=== PATIENT | female | born 1995 | race Caucasian/White ===

== ENCOUNTER 2016-05-04 19:27 | Emergency (ER) | payer OTHER ==
[2016-05-04 19:42] VITALS: BP 117/71; PULSE 81; TEMP 97.8; BMI 19.7
--- NOTE | 2016-05-04 20:46 | PDOC ---
History of Present Illness - General Chief Complaint: Injury Stated Complaint: INJURY TO RIGHT FOOT Time Seen by Provider: 05/04/16 19:52 History Source: Patient Exam Limitations: Language Barrier - History of Present Illness Initial Comments: 05/04/16 20:41 CC pain right great toe post heavy cutting board fell on same Occurred: reports: just prior to arrival Severity: reports: mild Pain Location: reports: lower extremity Method of Injury: Yes: direct blow Past History - Past Medical History Allergies/Adverse Reactions: Allergies Allergy/AdvReac Type Severity Reaction Status Date / Time morphine AdvReac Verified 05/04/16 19:38 Home Medications: Ambulatory Orders NK [No Known Home Medication] 05/04/16 - Psycho/Social/Smoking Cessation Hx Suicidal Ideation: No Smoking History: Never smoked Information on smoking cessation initiated: No Hx Alcohol Use: No Drug/Substance Use Hx: No Review of Systems - Review of Systems Constitutional: No: Chills, Fever, Malaise HEENTM: No: Symptoms Reported Respiratory: No: Symptoms reported, Cough Musculoskeletal: Yes: Joint Pain, Joint Swelling Integumentary: No: Symptoms Reported, Bruising Neurological: No: Numbness, Paresthesia, Tingling *Physical Exam - Vital Signs Last Vital Signs Temp Pulse Resp BP Pulse Ox 97.8 F 81 14 117/71 100 05/04/16 19:39 05/04/16 19:39 05/04/16 19:39 05/04/16 19:39 05/04/16 19:39 - Physical Exam General Appearance: Yes: Appropriately Dressed. No: Apparent Distress HEENT: negative: TMs Normal, Pharynx Normal Neck: positive: Supple. negative: Rigid Respiratory/Chest: positive: Lungs Clear Extremity: positive: Other (tender to prox phalange great toe with mild STS; no skin breaks) ED Treatment Course - ADDITIONAL ORDERS Additional order review: Laboratory Results 05/04/16 20:00 Urine HCG, Qual Negative - RADIOLOGY Radiology Studies Ordered: Category Date Time Status TOE(S) RIGHT [RAD] Stat Radiology 05/04/16 20:17 Taken Medical Decision Making - Medical Decision Making 05/04/16 20:44 xray= no fx noted; will suggest hard soled shoe and rest *DC/Admit/Observation/Transfer Diagnosis at time of Disposition: Contusion of toe of right foot Qualifiers: Encounter type: initial encounter Toe: great toe Damage to nail status: without damage Qualified Code(s): S90.111A - Contusion of right great toe without damage to nail, initial encounter - Discharge Dispostion Disposition: HOME Condition at time of disposition: Stable Admit: No - Referrals Referrals: Albert Peace MD [Primary Care Provider] - Britney Morrison MD [Staff Physician] - - Patient Instructions Additional Instructions: please wear hard soled shoe; franck splint as needed - Post Discharge Activity Work/School Note: Back to Work
== END 2016-05-04 20:50 | disposition home or self-care (01) ==
LOC: JERFT 19:27
DX: S90.111A Contusion of right great toe without damage to nail, initial encounter (principal); W20.8XXA Other cause of strike by thrown, projected or falling object, initial encounter; Y93.89 Activity, other specified; Y92.89 Other specified places as the place of occurrence of the external cause; Y99.8 Other external cause status
CPT/HCPCS: 73660-TC; 84703; 99281-25

== ENCOUNTER 2018-03-28 22:00 | Inpatient (IN) | payer OTHER ==
[2018-03-28] MEDS ORDERED: DEXTROSE 5%-LACTATED RINGERS 500 ML IV ONE (23:20)
[2018-03-29] MEDS: DEXTROSE 5%-LACTATED RINGERS 1,000 ML IV SCH ×2 (00:35→03:00)
[2018-03-29] MEDS ORDERED: BUTORPHANOL TARTRATE 1 MG/ML VIAL ONE ×2 (02:04)
[2018-03-29] MEDS ORDERED: PROMETHAZINE HCL 25 MG/1 ML VIAL ONE (02:04)
[2018-03-29 02:37] VITALS: BMI 25.9
[2018-03-29] MEDS ORDERED: PROMETHAZINE HCL 25 MG/1 ML VIAL IVPB ONE (03:30)
[2018-03-29] MEDS ORDERED: BUTORPHANOL TARTRATE 1 MG/ML VIAL IVPB ONE (03:30)
[2018-03-29 03:57] LABS: ALBUMIN 2.4 g/dl (3.4-5.0); ALK PHOS 157 U/L (45-117); ANION GAP 9 MMOL/L (8-16); BILIRUBIN,TOTAL 0.2 mg/dL (0.2-1); BLOOD UREA NITROGEN 8 mg/dL (7-18); CALCIUM 7.9 mg/dL (8.5-10.1); CHLORIDE 106 mmol/L (98-107); CO2 23 mmol/L (21-32); CREATININE 0.6 mg/dL (0.55-1.3); GLUCOSE,RANDOM 86 mg/dL (74-106); POTASSIUM 3.8 mmol/L (3.5-5.1); SGOT/AST 18 U/L (15-37); SGPT/ALT 15 U/L (13-61); SODIUM 138 mmol/L (136-145); TOT PROT 5.9 g/dl (6.4-8.2)
[2018-03-29 05:39] LABS: BASO % 0.4 % (0-2.0); EOS % 0.1 % (0-4.5); HEMATOCRIT 29.9 % (32.4-45.2); HEMOGLOBIN 9.3 GM/dL (10.7-15.3); LYMPH % 10.6 % (8-40); MCHC 31.1 g/dl (32.0-36.0); MEAN PLT VOLUME 7.8 fl (7.5-11.1); MONO % 7.6 % (3.8-10.2); NEUT % 81.3 % (42.8-82.8); PLATELET COUNT 197 K/MM3 (134-434); RBC 3.32 M/mm3 (3.60-5.2); RDW 18.5 % (11.6-15.6); WHITE BLOOD COUNT 11.2 K/mm3 (4.0-10.0)
[2018-03-29 05:55] LABS: INR 1.01 (0.83-1.09); PROTHROMBIN TIME (PATIENT) 11.9 SEC (9.7-13.0)
[2018-03-29 05:58] LABS: ACTIVATED PTT 27.2 SECONDS (25.2-36.5)
[2018-03-29] MEDS ORDERED: AMPICILLIN - 2 GM in SODIUM CHLORIDE 100 ML IVPB ONE (06:10)
[2018-03-29] MEDS ORDERED: AMPICILLIN SODIUM 2 GM VIAL ONE (06:13)
[2018-03-29] MEDS ORDERED: FENTANYL/BUPIVACAINE/NS/PF - PCEA - 50 ML DISP.SYRIN EP ONE ×2 (07:38→12:20)
[2018-03-29] MEDS ORDERED: BUPIVACAINE HCL/PF 0.25% (2.5MG/ML) 10 ML VIAL ONE (07:40)
[2018-03-29] MEDS ORDERED: NALOXONE HCL 0.4 MG/ML VIAL IVPUSH PRN (08:05)
[2018-03-29] MEDS ORDERED: FENTANYL/BUPIVACAINE/NS/PF - PCEA - 50 ML DISP.SYRIN EP SCH (08:15)
--- NOTE | 2018-03-29 09:13 | HP ---
Past Medical History - Admission History of Present Illness: 22 y/o with SIUP at 38.2 weeks gestation admitted overnight in labor. Pt admitted with contractions, is now 6cm dilated and recieved epidural this a.m. Pt is comfortable. overall uncomplicated. History Source: Patient, Medical Record Limitations to Obtaining History: No Limitations - Past Medical History Cardiovascular: Yes: Other (heart "murmur." Maternal echo this completed and normal.). No: HTN Pulmonary: No: COPD Gastrointestinal: No: GERD Renal/: No: UTI Reproductive: No: Endometriosis, Fibroids, PID ...: 1 ...Para: 0 ...Term: 0 ...: 0 ...Spon : 0 ...Induced : 0 ...Multiple Gestation: 0 ... Weeks Gestation by Dates: 38.1 ...EDC by Dates: 04/10/18 Heme/Onc: Yes: Anemia Psych: No: Anxiety, Bipolar, Depression - Past Surgical History Past Surgical History: Yes: None Hx Myomectomy: No Hx Transabdominal Cerclage: No - Smoking History Smoking history: Never smoked Have you smoked in the past 12 months: No - Alcohol/Substance Use Hx Alcohol Use: No - Social History ADL: Independent History of Recent Travel: No Home Medications - Allergies Allergies/Adverse Reactions: Allergies Allergy/AdvReac Type Severity Reaction Status Date / Time No Known Drug Allergies Allergy Verified 03/28/18 23:43 - Home Medications Home Medications: Ambulatory Orders Vitamins (Sjr) - 1 tab PO DAILY 03/28/18 Review of Systems - Review of Systems Constitutional: reports: No Symptoms Eyes: reports: No Symptoms HENT: reports: No Symptoms Neck: reports: No Symptoms Cardiovascular: reports: No Symptoms Respiratory: reports: No Symptoms Gastrointestinal: reports: No Symptoms Genitourinary: reports: No Symptoms Breasts: reports: No Symptoms Reported Musculoskeletal: reports: No Symptoms Integumentary: reports: No Symptoms Neurological: reports: No Symptoms Endocrine: reports: No Symptoms Hematology/Lymphatic: reports: No Symptoms Psychiatric: reports: No Symptoms Physical Exam - Maternity Vital Signs: Vital Signs Temperature 97.8 F 03/29/18 06:00 Pulse Rate 75 03/29/18 08:30 Respiratory Rate 17 03/29/18 08:30 Blood Pressure 102/50 L 03/29/18 08:30 O2 Sat by Pulse Oximetry (%) 98 03/29/18 08:30 Constitutional: Yes: Well Nourished, No Distress, Calm Eyes: Yes: Conjunctiva Clear, EOM Intact HENT: Yes: Atraumatic, Normocephalic Neck: Yes: Supple, Trachea Midline Lungs: Clear to auscultation - Abdominal Exam/OB Number of Fetuses: Single Presentation: Vertex Contractions: Yes Regularity: Irregular Intensity: Mod/Strong Heart Rate (range): 145 Category: I Accelerations: Uniform Decelerations: None - Vaginal Exam/OB Vaginal Bleediing: Yes (consistent with bloody show) Speculum Exam: No Dilatation (cm): 6 Effacement (%): 90 Amniotic Membrane Status: Ruptured (AROM for clear fluid this exam) Amniotic Fluid: Yes: Clear Presentation: Vertex/Position Station: -1 - Physical Exam Psychiatric: Yes: Alert, Oriented - Labs Lab Results: CBC, BMP 03/29/18 05:20 03/29/18 00:50 Hemorrhage Risk Assessment - Risk Factors Medium Risk Factors: Yes: None High Risk Factors: Yes: None Risk Score: 1 Risk Level: Medium Risk Problem List - Problems (1) Active labor at term Code(s): [id number] - Assessment/Plan 22 y/o with SIUP at 38.1 weeks, in labor FHTS cat 1 AFVSS AROM, to start pitocin continue active management
[2018-03-29] MEDS ORDERED: OXYTOCIN 30 UNITS in 0.9% NS 30 UNIT/500 ML INFUS.BAG IVPB SCH (09:15)
[2018-03-29] MEDS: AMPICILLIN - 1 GM in SODIUM CHLORIDE 100 ML IVPB SCH ×2 (10:10→16:11)
--- NOTE | 2018-03-29 11:06 | PN ---
Ante-Partal Exam - Subjective Subjective: Pt comfortable with epidural. Pitocin at 3mu. Contractions every 1-2 minutes. Vital Signs: Vital Signs Temperature 99.7 F H 03/29/18 10:00 Pulse Rate 81 03/29/18 10:00 Respiratory Rate 18 03/29/18 10:00 Blood Pressure 105/67 03/29/18 10:00 O2 Sat by Pulse Oximetry (%) 98 03/29/18 10:00 Bleeding: Yes Bleeding Description: Mild Headache: No Visual changes: No Right upper quadrant pain: No - Contractions Contractions: Yes Regularity: Regular Intensity: Strong Monitor Mode: External - Exam during Labor Heart Rate: 145 Variability: Moderate Category: I Monitor Accelerations: Absent Monitor Decelerations: None Exam: Vaginal Dilatation (cm): 7.5 Effacement (%): 100 Amniotic Membrane Status: Ruptured Presentation: Vertex Station: 0 - Assessment/Plan Assessment/Plan: continue pitocin/active management GBS negative - ampicillin discontinued
[2018-03-29] MEDS ORDERED: WITCH HAZEL 50% (TUCKS) 40 PAD/JAR PAD TP PRN (12:43)
[2018-03-29] MEDS ORDERED: BENZOCAINE 20% 57 GM BOTTLE TP PRN (12:43)
[2018-03-29] MEDS ORDERED: BISACODYL 10 MG SUPP.RECT RC PRN (12:43)
[2018-03-29] MEDS ORDERED: METHYLERGONOVINE MALEATE 0.2 MG/1 ML AMP IM PRN (12:43)
[2018-03-29] MEDS ORDERED: BENZOCAINE 28 GM HEMORRHOIDAL OINTMENT TP PRN (12:43)
[2018-03-29] MEDS ORDERED: LIDOCAINE HCL 1% PRESERVATIVE FREE - 30ML VIAL ONE (12:44)
[2018-03-29] MEDS ORDERED: OXYTOCIN 20 UNITS in 0.9% NS 20 UNIT/1,000 ML INFUS.BAG IV SCH (12:45)
--- NOTE | 2018-03-29 12:45 | PN ---
Ante-Partal Exam - Subjective Vital Signs: Vital Signs Temperature 99.7 F H 03/29/18 10:00 Pulse Rate 94 H 03/29/18 12:30 Respiratory Rate 17 03/29/18 12:30 Blood Pressure 114/75 03/29/18 12:30 O2 Sat by Pulse Oximetry (%) 99 03/29/18 12:30 Bleeding: Yes Bleeding Description: Mild Headache: No Visual changes: No Right upper quadrant pain: No Pain (scale 1-10): 0 - Contractions Contractions: Yes Regularity: Regular Intensity: Strong - Exam during Labor Heart Rate: 145 Variability: Minimal Category: I Monitor Accelerations: Present (with scalp stim) Monitor Decelerations: None Exam: Vaginal Dilatation (cm): 10 Effacement (%): 100 Amniotic Membrane Status: Ruptured Meconium Staining: Light Station: +1 - Assessment/Plan Assessment/Plan: To begin pushing
--- NOTE | 2018-03-29 13:42 | PN ---
Ante-Partal Exam - Subjective Subjective: pt pushing for approx 30 minutes, minimal descent Vital Signs: Vital Signs Temperature 99.7 F H 03/29/18 10:00 Pulse Rate 86 03/29/18 12:45 Respiratory Rate 18 03/29/18 12:45 Blood Pressure 124/69 03/29/18 12:45 O2 Sat by Pulse Oximetry (%) 100 03/29/18 12:45 Bleeding: Yes Bleeding Description: Mild Headache: No Visual changes: No Right upper quadrant pain: No Pain (scale 1-10): 0 - Contractions Contractions: Yes Regularity: Regular Intensity: Strong - Exam during Labor Heart Rate: 145 Variability: Moderate Heart Rate Location: [facility] Category: I Monitor Decelerations: None Exam: Vaginal Dilatation (cm): 10 Effacement (%): 100 Amniotic Membrane Status: Ruptured Presentation: Vertex Station: +1 - Assessment/Plan Assessment/Plan: to take break pushingl, re assess and restart pushing in 30 minutes
--- NOTE | 2018-03-29 15:14 | PN ---
Delivery - Delivery Vaginal Delivery: No Problems Type of Anesthesia: Local (9cc of 1% lidocaine injected into perineum before repair), Epidural Episiotomy/Laceration: 2nd degree EBL (cc): 300 Delivery, Single - Stages of Labor Date of Delivery: 03/29/18 Time of Delivery: 14:46 Date Placenta Delivered: 03/29/18 Time Placenta Delivered: 14:55 Placenta: Yes: Spontaneous - Condition of Top Precipitator Operator/Embalmer Assistant Present: No Gender: Male Position: Left, OA - 1 Minute Total Score: 8 5 Minutes Total Score: 9 - [place] Feeding Plan Initial Plan: Elected not to breastfeed exclusively throughout hospitalization Remarks - Remarks Remarks: Uncomplicate from KEO position loose nuchal cord noted after delivery of head, reduced at perineum anterior (left) shoulder and remainder of delivered with ease placenta delivered spontaneously and in tact cord clamped and cut 2nd degree perineum repaired with 2-0 chromic and 2-0 vicryl 300 EBL mom stable baby to well baby nursery sponge and needle count correct
[2018-03-29] MEDS ORDERED: ACETAMINOPHEN 325 MG TABLET (FP) ONE (15:51)
[2018-03-29] MEDS ORDERED: IBUPROFEN 600 MG TABLET (FP) PO ONE (15:51)
[2018-03-29] MEDS: IBUPROFEN 600 MG TABLET (FP) PO PRN ×2 (16:00→21:28)
[2018-03-29] MEDS: ACETAMINOPHEN 325 MG TABLET (FP) PO PRN ×2 (16:00→21:30)
[2018-03-30] MEDS: DEXTROSE 5%-LACTATED RINGERS 1,000 ML IV SCH (02:52)
[2018-03-30] MEDS: IBUPROFEN 600 MG TABLET (FP) PO PRN ×2 (07:41→20:52)
[2018-03-30] MEDS: ACETAMINOPHEN 325 MG TABLET (FP) PO PRN ×2 (07:42→20:53)
[2018-03-30 07:50] LABS: BASO % 0.4 % (0-2.0); EOS % 0.4 % (0-4.5); HEMATOCRIT 30.7 % (32.4-45.2); HEMOGLOBIN 9.6 GM/dL (10.7-15.3); LYMPH % 14.2 % (8-40); MCH 27.8 pg (25.7-33.7); MCHC 31.4 g/dl (32.0-36.0); MEAN CELL VOLUME 88.7 fl (80-96); MEAN PLT VOLUME 7.6 fl (7.5-11.1); PLATELET COUNT 184 K/MM3 (134-434); RBC 3.46 M/mm3 (3.60-5.2); RDW 18.7 % (11.6-15.6); WHITE BLOOD COUNT 16.3 K/mm3 (4.0-10.0)
[2018-03-30] MEDS: PRENATAL VITAMINS W/ FOLIC ACID TABLET (FP) PO SCH (09:03)
[2018-03-30 11:12] LABS: HBsAG SCREEN Negative (Negative)
--- NOTE | 2018-03-30 17:18 | PN ---
Post Progress Note - Subjective Subjective: Status post vaginal delivery. Doing well Post Day: 1 Type of Delivery: Vital Signs: Vital Signs Temperature 98.2 F 03/30/18 14:15 Pulse Rate 94 H 03/30/18 14:15 Respiratory Rate 20 03/30/18 14:15 Blood Pressure 104/59 L 03/30/18 14:15 O2 Sat by Pulse Oximetry (%) 100 03/29/18 15:45 Breast Exam: Yes: Soft Uterus: Yes: Fundus Firm Abdomen/GI: Yes: Abdomen soft, Tolerating PO Lochia: Yes: Rubra Lochia, amount: Moderate Extremities: Yes: Calves non-tender Activity: Ambulating - Labs Labs: CBC WBC 16.3 K/mm3 (4.0-10.0) H 03/30/18 07:00 RBC 3.46 M/mm3 (3.60-5.2) L 03/30/18 07:00 Hgb 9.6 GM/dL (10.7-15.3) L 03/30/18 07:00 Hct 30.7 % (32.4-45.2) L 03/30/18 07:00 MCV 88.7 fl (80-96) 03/30/18 07:00 MCH 27.8 pg (25.7-33.7) 03/30/18 07:00 MCHC 31.4 g/dl (32.0-36.0) L 03/30/18 07:00 RDW 18.7 % (11.6-15.6) H 03/30/18 07:00 Plt Count 184 K/MM3 (134-434) 03/30/18 07:00 MPV 7.6 fl (7.5-11.1) 03/30/18 07:00 Absolute Neuts (auto) 13.1 K/mm3 (1.5-8.0) H 03/30/18 07:00 Neutrophils % 80.0 % (42.8-82.8) 03/30/18 07:00 Lymphocytes % 14.2 % (8-40) D 03/30/18 07:00 Monocytes % 5.0 % (3.8-10.2) 03/30/18 07:00 Eosinophils % 0.4 % (0-4.5) D 03/30/18 07:00 Basophils % 0.4 % (0-2.0) 03/30/18 07:00 Nucleated RBC % 0 % (0-0) 03/30/18 07:00 Problem List - Problems (1) Status post normal vaginal delivery Code(s): [id number] - Assessment/Plan Status post vaginal delivery Stable Continue routine care
[2018-03-30] MEDS ORDERED: SENNOSIDES/DOCUSATE COMBO (SENNA PLUS) TABLET (UD) PO PRN (22:00)
[2018-03-31 05:14] LABS: RUBELLA IgG ANTIBODY 1.48 index (Immune >0.99)
--- NOTE | 2018-03-31 09:08 | DS ---
Physical Exam-STEREOTYPER Vital Signs: Vital Signs Temperature 98.7 F 03/30/18 21:00 Pulse Rate 93 H 03/30/18 21:00 Respiratory Rate 20 03/30/18 21:00 Blood Pressure 119/71 03/30/18 21:00 O2 Sat by Pulse Oximetry (%) 100 03/29/18 15:45 Constitutional: Yes: Well Nourished, No Distress, Calm Eyes: Yes: Conjunctiva Clear Neck: Yes: Supple Cardiovascular: Yes: Regular Rate and Rhythm Respiratory: Yes: Regular Gastrointestinal: Yes: WNL ....Post : Yes: Uterus firm, Uterus non-tender Wound/Incision: Yes: Clean/Dry (perineum), Well Approximated Psychiatric: Yes: Alert, Oriented Labs: CBC, BMP 03/30/18 07:00 03/29/18 00:50 Delivery - Delivery Vaginal Delivery: No Problems Type of Anesthesia: Local, Epidural Episiotomy/Laceration: 2nd degree EBL (cc): 300 Delivery, Single - Stages of Labor Date 1st Stage Initiatied: 03/28/18 Time 1st Stage Initiated: 03:00 Date 2nd Stage Initiated: 03/29/18 Time 2nd Stage Initiated: 12:50 Date of Delivery: 03/29/18 Time of Delivery: 14:46 Date Placenta Delivered: 03/29/18 Time Placenta Delivered: 14:55 Placenta: Yes: Spontaneous - Condition of Infant Yarn Weigher/Chain Maker Present: No Infant Gender: Male Weight: 6 lb 8 oz Position: Left, OA Total Hours ROM (Hrs/Mins): 5 hours 55 minutes - 1 Minute Total Score: 8 5 Minutes Total Score: 9 - Feeding Plan Initial Plan: Elected not to breastfeed exclusively throughout hospitalization Discharge Summary Reason For Visit: LABOR ADMIT Current Active Problems Active labor at term (Acute) Status post normal vaginal delivery (Acute) Hospital Course: PT admitted overnight on 03/28/2018 in labor and then underwent a normal on 03/29/18. She had an uncomplicated post recovery and was discharged home on post day 2. - Instructions Referrals: Sima Maldonado DO [Staff Physician] - - Home Medications Comprehensive Discharge Medication List: Ambulatory Orders Vitamins (Sjr) - 1 tab PO DAILY 03/28/18
[2018-03-31 09:44] VITALS: BP 104/61; PULSE 76; TEMP 98.5
[2018-03-31] MEDS: PRENATAL VITAMINS W/ FOLIC ACID TABLET (FP) PO SCH (10:32)
== END 2018-03-31 18:00 | disposition home or self-care (01) | DRG 807 ==
LOC: JDEL 22:00 → JLDR 03-29 01:45 → J3W 03-29 16:59
PROVIDERS: ADMIT Obstetrics & Gynecology; ATTEND Obstetrics & Gynecology
PROC: 0KQM0ZZ Repair Perineum Muscle, Open Approach (ICD-10-PCS; principal; 2018-03-29)
PROC: 10E0XZZ Delivery of Products of Conception, External Approach (ICD-10-PCS; 2018-03-29)
PROC: 10907ZC Drainage of Amniotic Fluid, Therapeutic from Products of Conception, Via Natural or Artificial Opening (ICD-10-PCS; 2018-03-29)
DX: O70.1 Second degree perineal laceration during delivery (principal); Z37.0 Single live birth; Z3A.38 38 weeks gestation of pregnancy
CPT/HCPCS: 36415; 59409; 80048; 80053; 85025; 85610; 85730; 86593; 86762; 86850; 86900; 86901; 87340; 87389